=== PATIENT | male | born 1945 | race Caucasian/White ===

== ENCOUNTER 2016-06-27 15:08 | Emergency (ER) | payer MEDICARE, BC ==
[2016-06-27 16:24] VITALS: BP 131/80
--- NOTE | 2016-06-27 16:42 | UC ---
Lower Extremity/Ankle HPI - HPI Summary HPI Summary: PATIENT PRESENTS TO THE WITH CC OF LEFT KNEE PAIN. HE STATES THAT 3 NIGHTS AGO HE WAS WALKING UP THE STAIRS WHEN HIS KNEE GAVE OUT, HE CAUGHT HIMSELF, BUT IMMEDIATELY FELT WEAK IN HIS KNEE AND HAS NOT BEEN ABLE WALK NORMALLY ON IT SINCE THAT TIME. HE DENIES FALLING ONTO THE KNEE. HE DENIES PREVIOUS KNEE PAIN OR INJURIES. HE NOTES TO SHARP AND SHOOTING PAINS FROM THE MEDIAL SIDE OF THE KNEE DOWN INTO THE CALF MUSCLE WHEN KNEE IS FLEXED. WHEN KNEE IS FULLY EXTENDED, HE DENIES ANY PAIN AND FEELS STRONG TO STAND. HE IS OTHERWISE HEALTHY. - History of Current Complaint Chief Complaint: UCLowerExtremity Stated Complaint: KNEE PAIN Time Seen by Provider: 06/27/16 16:29 Hx Obtained From: Patient Onset/Duration: Sudden Onset Severity Initially: Moderate Severity Currently: Moderate Pain Intensity: 5 Aggravating Factor(s): Standing, Ambulation Alleviating Factor(s): Rest Able to Bear Weight: Yes - Risk Factors Gout Risk Factors: Age Over 40, Male DVT Risk Factors: Negative Septic Arthritis Risk Factor: Extremes of Age - Allergies/Home Medications Allergies/Adverse Reactions: Allergies Allergy/AdvReac Type Severity Reaction Status Date / Time No Known Allergies Allergy Verified 08/19/13 17:08 PMH/Surg Hx/FS Hx/Imm Hx Previously Healthy: Yes Endocrine History Of: Denies: Diabetes, Thyroid Disease Cardiovascular History Of: Denies: Cardiac Disorders, Hypertension Respiratory History Of: Denies: COPD, Asthma GI/ History Of: Denies: Ulcer - Surgical History Surgical History: Yes Surgery Procedure, Year, and Place: nasal surgery - Family History Known Family History: Positive: Unknown - Social History Occupation: Unemployed Lives: With Family Alcohol Use: Rare Substance Use Type: None Smoking Status (MU): Former Smoker Review of Systems Constitutional: Negative Skin: Negative ENT: Negative Cardiovascular: Negative Gastrointestinal: Negative Motor: Weakness Neurovascular: Negative Musculoskeletal: Arthralgia - MEDIAL KNEE PAIN Neurological: Weakness All Other Systems Reviewed And Are Negative: Yes Physical Exam Triage Information Reviewed: Yes Appearance: Well-Appearing, Well-Nourished Vital Signs: Initial Vital Signs Temp 97.3 F 06/27/16 16:19 Pulse 55 06/27/16 16:19 Resp 18 06/27/16 16:19 BP 131/80 06/27/16 16:19 Pulse Ox 100 06/27/16 16:19 Vital Signs Reviewed: Yes Eye Exam: Normal Eyes: Positive: Conjunctiva Clear Neck: Positive: Supple, Nontender, No Lymphadenopathy Cardiovascular Exam: Normal Cardiovascular: Positive: RRR Musculoskeletal: Positive: Strength Limited @ - KNEE FLEXION, ROM Limited @ - ROM LIMITED WITH FLEXION Lower Extremity Course/Dx - Course Course Of Treatment: PATIENT SENT TO XRAY. NO ACUTE INJURY IS NOTED. PATIENT IS REFERRED TO DR. DENNEY FOR FOLLOW UP. IBUPROFEN 600MG TID NEEDED. PATIENT AGREES WITH PLAN AND IS OK FOR DISCHARGE. - Differential Dx/Diagnosis Differential Diagnosis/HQI/PQRI: Contusion, Sprain, Strain, Tendonitis Provider Diagnoses: KNEE STRAIN Discharge - Discharge Plan Condition: Stable Disposition: HOME Patient Education Materials: Knee Sprain (ED), Knee Pain (ED) Referrals: John Aburto MD [Primary Care Provider] - Marlee Denney MD [Medical Doctor] - Additional Instructions: FOLLOW UP WITH DR. DENNEY CALL OFFICE TOMORROW FOR APPT USE CRUTCHES NEEDED, BUT IF PAIN BECOMES WORSE, COME BACK TO IBUPROFEN 600MG THREE TIMES DAILY NEEDED FOR PAIN
--- NOTE | 2016-06-27 16:57 | RAD ---
Indication: Left knee pain. 4 views of left knee demonstrates no fracture. No other bone or joint abnormality is noted. No joint effusion is noted. IMPRESSION: Unremarkable left knee.
== END 2016-06-27 17:13 | disposition home or self-care (01) ==
LOC: UCEAST 15:08
DX: S86.912A Strain of unspecified muscle(s) and tendon(s) at lower leg level, left leg, initial encounter (principal); X58.XXXA Exposure to other specified factors, initial encounter; Y93.9 Activity, unspecified; Y92.9 Unspecified place or not applicable; Z87.891 Personal history of nicotine dependence
CPT/HCPCS: 99211; G0463

== ENCOUNTER 2016-08-21 18:12 | Emergency (ER) | payer MEDICARE, BC ==
[2016-08-21 18:19] VITALS: BP 130/78
[2016-08-21] MEDS ORDERED: Sulfamethox/Trimethoprim DS 800/160* TAB PO ONE (18:37)
--- NOTE | 2016-08-21 18:38 | UC ---
Laceration HPI - HPI Summary HPI Summary: 71 year old male presents with complains of upper lip laceration secondary to blunt trauma. - History Of Current Complaint Chief Complaint: UCLaceration Stated Complaint: LIP LACERATION Time Seen by Provider: 08/21/16 18:34 - Allergies/Home Medications Allergies/Adverse Reactions: Allergies Allergy/AdvReac Type Severity Reaction Status Date / Time No Known Allergies Allergy Verified 08/21/16 18:19 PMH/Surg Hx/FS Hx/Imm Hx - Surgical History Surgical History: Yes Surgery Procedure, Year, and Place: nasal surgery - Family History Known Family History: Positive: Unknown - Social History Alcohol Use: None Substance Use Type: None Smoking Status (MU): Former Smoker - Immunization History Most Recent Tetanus Shot: <5 YEARS ( OF 08/21/16) Review of Systems Constitutional: Negative Skin: Other - upper lip laceration Eyes: Negative ENT: Negative Respiratory: Negative Cardiovascular: Negative Gastrointestinal: Negative Genitourinary: Negative Motor: Negative Neurovascular: Negative Musculoskeletal: Negative Neurological: Negative Psychological: Negative All Other Systems Reviewed And Are Negative: Yes Physical Exam Triage Information Reviewed: Yes Vital Signs: Initial Vital Signs Temp 36.8 C 08/21/16 18:16 Pulse 58 08/21/16 18:16 Resp 16 08/21/16 18:16 BP 130/78 08/21/16 18:16 Pulse Ox 97 08/21/16 18:16 Eye Exam: Normal ENT Exam: Normal Dental Exam: Normal Neck exam: Normal Neck: Positive: 1 Respiratory Exam: Normal Cardiovascular Exam: Normal Abdominal Exam: Normal Musculoskeletal Exam: Normal Neurological Exam: Normal Psychological Exam: Normal Skin: Positive: Other - upper lip laceration Laceration Repair - Laceration Repair 1 Description: Irregular Laceration Size After Repair: Length (cm) - < 2.5 cm Modified For Repair: No Cleansing Completed Via Routine Prep: Yes Closure Material: Sutures - 4.0 absorable . #1 Closure Method: Single Layer Suture Of: Skin Suture Type: Vicryl Laceration Course/Dx - Differential Dx - Laceration/Wound Provider Diagnoses: upper lip laceration Discharge - Discharge Plan Condition: Stable Disposition: HOME Prescriptions: Sulfamethox/Trimethoprim DS* [Bactrim DS 800/160 TAB*] 1 tab PO BID #14 tab Patient Education Materials: Laceration (ED) Referrals: John Aburto MD [Primary Care Provider] - If Needed
== END 2016-08-21 19:34 | disposition home or self-care (01) ==
LOC: UCEAST 18:12
DX: S01.511A Laceration without foreign body of lip, initial encounter (principal); X58.XXXA Exposure to other specified factors, initial encounter; Z87.891 Personal history of nicotine dependence
CPT/HCPCS: 12011; 99212; A9270-GY; G0463